=== PATIENT | female | born 1945 ===

== ENCOUNTER 2020-12-06 15:40 | Observation (INO) ==
[2020-12-06 16:49] LABS: ABS Eosinophils 0.1 10^3/ul (0-0.6); ABS Lymphocytes 0.4 10^3/ul (1.0-4.8); ABS Monocytes 0.4 10^3/ul (0-0.8); ABS Neutrophils 6.2 10^3/ul (1.5-7.7); Eosinophil % 1.6 %; Hematocrit 36 % (35-47); Hemoglobin 11.7 g/dL (12.0-16.0); Lymphocyte % 5.8 %; Mean Corpuscular HGB Conc 33 g/dL (31-36); Mean Corpuscular Hemoglobin 29 pg (27-31); Mean Corpuscular Volume 87 fL (80-97); Mean Platelet Volume 10.9 fL (7.4-10.4); Nucleated Red Blood Cells % 0.1; Platelet Count 152 10^3/uL (150-450); Red Blood Count 4.08 10^6 /uL (3.70-4.87); Red Cell Distribution Width 20 % (10-15); White Blood Count 7.1 10^3/uL (3.5-10.8)
[2020-12-06 17:07] LABS: Albumin 3.9 g/dL (3.2-5.2); Albumin/Globulin Ratio 0.9 (1-3); C Reactive Protein 24.4 mg/L (<8.01); Calcium 9.7 mg/dL (8.6-10.3); EGFR African American 32.5 (>60); EGFR Non-African American 26.9 (>60); Globulin 4.2 g/dL (2-4); Total Bilirubin 0.9 mg/dL (0.2-1.0); Total Protein 8.1 g/dL (6.4-8.9)
[2020-12-06 17:08] LABS: Troponin I 0.01 ng/mL (<0.03)
[2020-12-06] MEDS ORDERED: Azithromycin 500 mg/250 ml NS 500 MG/250 ML BAG IVPB ONE (17:23)
[2020-12-06] MEDS ORDERED: cefTRIAXone 1 gm/50 mL NS BAG 1 GM/50 ML BAG IV ONE (17:23)
[2020-12-06] MEDS ORDERED: Furosemide 40 mg/4 ml IV VIAL IV SLOW PU ONE (19:27)
[2020-12-06] MEDS ORDERED: Dextrose 50% Syringe 50 ml 25 GM/50 ML SYRINGE IV PUSH PRN (22:17)
[2020-12-06] MEDS ORDERED: SPIRIVA Respimat (tiotropium) 2.5 mcg/inh Inhaler INH PRN (22:58)
[2020-12-06] MEDS ORDERED: Albuterol HFA INHALER 8 gm MDI INH PRN (23:01)
[2020-12-07] MEDS ORDERED: Albuterol/Ipratropium NEB.SOL (2.5/0.5 MG) 3 ML NEB.SOLN INH SCH (07:00)
[2020-12-07 08:19] LABS: ABS Lymphocytes 0.4 10^3/ul (1.0-4.8); ABS Monocytes 0.4 10^3/ul (0-0.8); ABS Neutrophils 8.3 10^3/ul (1.5-7.7); Eosinophil % 0.2 %; Hematocrit 34 % (35-47); Hemoglobin 11.1 g/dL (12.0-16.0); Lymphocyte % 3.9 %; Mean Corpuscular HGB Conc 33 g/dL (31-36); Mean Corpuscular Hemoglobin 29 pg (27-31); Mean Corpuscular Volume 86 fL (80-97); Mean Platelet Volume 10.9 fL (7.4-10.4); Platelet Count 105 10^3/uL (150-450); Red Blood Count 3.88 10^6 /uL (3.70-4.87); Red Cell Distribution Width 20 % (10-15)
[2020-12-07 08:35] LABS: Calcium 9.2 mg/dL (8.6-10.3); EGFR African American 34.2 (>60); EGFR Non-African American 28.3 (>60); Magnesium 1.8 mg/dL (1.9-2.7); Potassium 3.9 mmol/L (3.5-5.0)
[2020-12-07] MEDS ORDERED: Insulin ISOPH/REG 70/30 SUBCUT SCH (09:00)
[2020-12-07] MEDS ORDERED: Furosemide 40 mg/4 ml IV VIAL IV SLOW PU SCH (09:00)
[2020-12-07] MEDS ORDERED: Potassium Chlor 20 meq TAB.ER PO SCH (09:00)
[2020-12-07] MEDS ORDERED: Fluticasone NASAL SPRAY 50MCG 16 gm SPRAY BTL INTRANASAL SCH (09:00)
[2020-12-07] MEDS ORDERED: Empagliflozin (NF) 25 MG TABLET PO SCH (09:00)
[2020-12-07] MEDS ORDERED: Dextrose 50% Syringe 50 ml 25 GM/50 ML SYRINGE IV PUSH PRN (09:07)
[2020-12-07] MEDS ORDERED: Albuterol/Ipratropium NEB.SOL (2.5/0.5 MG) 3 ML NEB.SOLN INH PRN (09:36)
[2020-12-07] MEDS ORDERED: Perflutren Lipid Microsphere 3 ML VIAL ONE (13:28)
[2020-12-07] MEDS ORDERED: Calcium Carb (TUMS) 500 mg CHEW TAB PO PRN (15:09)
[2020-12-07 15:28] VITALS: BP 111/65
[2020-12-07] MEDS ORDERED: Furosemide 40 mg/4 ml IV VIAL IV ONE (15:48)
[2020-12-07] MEDS ORDERED: cefTRIAXone 1 gm/50 mL NS BAG 1 GM/50 ML BAG IVPB SCH (18:00)
[2020-12-07] MEDS ORDERED: Azithromycin 500 mg/250 ml NS 500 MG/250 ML BAG IVPB SCH (18:30)
== END 2020-12-07 17:30 | disposition home or self-care (01) ==
LOC: ED 15:40 → INTOOBSV 19:22 → MED 19:22
PROVIDERS: ADMIT Internal Medicine; ATTEND Internal Medicine

== ENCOUNTER 2021-06-15 03:16 | Observation (INO) ==
[2021-06-15 03:43] LABS: ABS Eosinophils 0.3 10^3/ul (0-0.6); ABS Lymphocytes 0.2 10^3/ul (1.0-4.8); ABS Monocytes 0.6 10^3/ul (0-0.8); ABS Neutrophils 4.9 10^3/ul (1.5-7.7); Eosinophil % 4.5 %; Hematocrit 32 % (35-47); Hemoglobin 10.9 g/dL (12.0-16.0); Lymphocyte % 3.7 %; Mean Corpuscular HGB Conc 34 g/dL (31-36); Mean Corpuscular Hemoglobin 35 pg (27-31); Mean Corpuscular Volume 105 fL (80-97); Mean Platelet Volume 10.6 fL (7.4-10.4); Platelet Count 105 10^3/uL (150-450); Red Cell Distribution Width 20 % (10-15)
[2021-06-15 04:01] LABS: Albumin 3.8 g/dL (3.2-5.2); Albumin/Globulin Ratio 1.4 (1-3); Calcium 9.1 mg/dL (8.6-10.3); Globulin 2.8 g/dL (2-4); Potassium 3.7 mmol/L (3.5-5.0); Total Bilirubin 0.8 mg/dL (0.2-1.0); Total Protein 6.6 g/dL (6.4-8.9); Troponin I 0.01 ng/mL (<0.03); eGFR CKD-EPI 38.1 (>60)
[2021-06-15] MEDS ORDERED: Furosemide 40 mg/4 ml IV VIAL IV ONE (04:07)
[2021-06-15 04:12] LABS: Activated Partial Thrombo Time 37.6 seconds (26.0-38.0); INR 1.54 (0.86-1.15)
[2021-06-15 04:17] LABS: C Reactive Protein 6.09 mg/L (<8.01); Magnesium 1.8 mg/dL (1.9-2.7)
[2021-06-15 04:55] LABS: Urine Appearance Clear; Urine Bilirubin Negative (Negative); Urine Blood Negative (Negative); Urine Color Yellow; Urine Glucose Negative (Negative); Urine Ketones Negative (Negative); Urine Nitrite Negative (Negative); Urine Protein Negative (Negative); Urine Urobilinogen Negative (Negative)
[2021-06-15] MEDS ORDERED: Furosemide 40 mg/4 ml IV VIAL IV SLOW PU ONE (05:00)
[2021-06-15] MEDS ORDERED: Dextrose 50% Syringe 50 ml 25 GM/50 ML SYRINGE IV PUSH PRN (06:00)
[2021-06-15] MEDS ORDERED: Magnesium Sulfate 2 gm BAG 2 GM/50 ML BAG IVPB ONE (06:40)
[2021-06-15 07:03] LABS: Ferritin 65.3 ng/mL (11-307)
[2021-06-15 11:01] LABS: Calcium 9.3 mg/dL (8.6-10.3); Potassium 3.6 mmol/L (3.5-5.0); eGFR CKD-EPI 37.8 (>60)
[2021-06-15 11:57] LABS: Folate 7.14 ng/mL (5.90-24.80)
[2021-06-15] MEDS ORDERED: CMCS: Simvastatin 10 mg TAB (NF) PO SCH (21:00)
[2021-06-16 06:08] LABS: ABS Basophils 0.1 10^3/ul (0-0.2); ABS Eosinophils 0.1 10^3/ul (0-0.6); ABS Lymphocytes 0.4 10^3/ul (1.0-4.8); ABS Monocytes 0.7 10^3/ul (0-0.8); ABS Neutrophils 6.2 10^3/ul (1.5-7.7); Eosinophil % 0.7 %; Hematocrit 35 % (35-47); Hemoglobin 11.8 g/dL (12.0-16.0); Lymphocyte % 4.8 %; Mean Corpuscular HGB Conc 34 g/dL (31-36); Mean Corpuscular Hemoglobin 36 pg (27-31); Mean Corpuscular Volume 105 fL (80-97); Mean Platelet Volume 10.6 fL (7.4-10.4); Platelet Count 110 10^3/uL (150-450); Red Cell Distribution Width 21 % (10-15); White Blood Count 7.4 10^3/uL (3.5-10.8)
[2021-06-16 06:27] LABS: Potassium 4.1 mmol/L (3.5-5.0)
[2021-06-16 06:28] LABS: Calcium 9.5 mg/dL (8.6-10.3); Magnesium 2.1 mg/dL (1.9-2.7); eGFR CKD-EPI 35.4 (>60)
[2021-06-16 09:45] VITALS: BP 109/74
[2021-06-16] MEDS ORDERED: Albuterol HFA INHALER 8 gm MDI INH PRN (09:45)
[2021-06-16 11:39] LABS: % Iron Saturation 14 % (14 - 50); Total Iron Binding Capacity 327 mcg/dL (250 - 400)
== END 2021-06-16 11:05 | disposition home or self-care (01) ==
LOC: ED 03:16 → MEDTELE 03:16 → SUATTDRO 04:58
PROVIDERS: ADMIT Internal Medicine; ATTEND Internal Medicine